=== PATIENT | male | born 1960 | race Caucasian/White ===

== ENCOUNTER 2019-06-23 06:56 | Day surgery (SDC) | payer BC ==
[~2019-06-23] VITALS: Ht 170.2 cm; Wt 71.4 kg
[~2019-06-23 06:56] MED LIST: BUPIVACAINE/PF-EPI 0.5% 1:200K ONE; LIDOCAINE 1%-EPI 1:100K, 20ML ONE
[2019-06-23] MEDS ORDERED: MIDAZOLAM 1 MG/ML, 2ML ONE (07:02)
[2019-06-23] MEDS ORDERED: FENTANYL PF 250 MCG/5ML ONE (07:02)
[2019-06-23] MEDS ORDERED: LACTATED RINGERS 1,000 ML IV SCH (07:19)
[2019-06-23] MEDS ORDERED: GABA300C10 PO (07:21)
[2019-06-23] MEDS ORDERED: CELE200C PO (07:21)
[2019-06-23] MEDS ORDERED: CHLORHEXIDINE 15 ML UDC ONE (07:25)
[2019-06-23] MEDS ORDERED: CHLORHEXIDINE 15 ML UDC MM ONE (07:30)
[2019-06-23 07:46] VITALS: BP 147/90
[2019-06-23] MEDS ORDERED: PROPOFOL 10 MG/ML, 20ML ONE (07:57)
[2019-06-23] MEDS ORDERED: DEXAMETHASONE 4 MG/ML, 1ML ONE (07:57)
[2019-06-23] MEDS ORDERED: SUCCINYLCHOLINE 20 MG/ML, 10ML ONE (07:57)
[2019-06-23] MEDS ORDERED: CEFAZOLIN 1,000 MG ONE (07:57)
[2019-06-23] MEDS ORDERED: ROCURONIUM 10 MG/ML,10ML ONE (07:57)
[2019-06-23] MEDS ORDERED: ONDANSETRON 2MG/ML, 2ML ONE (07:57)
[2019-06-23] MEDS ORDERED: FENTANYL PF 100 MCG/2ML IV PRN (08:30)
[2019-06-23] MEDS ORDERED: MEPERIDINE/PF 25MG/0.5ML IVPush PRN (08:30)
[2019-06-23] MEDS ORDERED: ALBUTEROL SULFATE 2.5 MG/3 ML NPPB PRN (08:30)
[2019-06-23] MEDS ORDERED: ONDANSETRON 2MG/ML, 2ML IVPush PRN (08:30)
[2019-06-23] MEDS ORDERED: KETOROLAC 30 MG/1 ML IV PRN (08:30)
[2019-06-23] MEDS ORDERED: HYDROmorphone 1 MG/ML, 1ML INJ IV PRN (08:30)
[2019-06-23] MEDS ORDERED: PROMETHAZINE 25 MG/ML, 1ML IV PRN (08:30)
[2019-06-23] MEDS ORDERED: DIAZEPAM 5 MG/ML, 2ML IV PRN ×2 (08:30)
[2019-06-23] MEDS ORDERED: METOCLOPRAMIDE 5 MG/ML, 2ML IV PRN (08:30)
[2019-06-23] MEDS ORDERED: OXYcodone 5 MG/5 ML ORAL.SOL UDC PO PRN (08:30)
[2019-06-23] MEDS ORDERED: LABETALOL 5MG/ML, 20ML IV PRN (08:30)
[2019-06-23] MEDS ORDERED: hydrALAzine 20 MG/ML, 1ML IV PRN (08:30)
[2019-06-23] MEDS ORDERED: OMNIPAQUE 180 MG/ML, 20ML VIAL ONE (08:52)
== END 2019-06-23 11:05 | disposition home or self-care (01) ==
LOC: EDSEX 06:56 → OUT 06:56
PROVIDERS: ATTEND Orthopaedic Surgery Orthopaedic Surgery of the Spine
DX: S32.018A Other fracture of first lumbar vertebra, initial encounter for closed fracture (principal); M54.5 Low back pain; M85.88 Other specified disorders of bone density and structure, other site; Z79.899 Other long term (current) drug therapy; Z90.49 Acquired absence of other specified parts of digestive tract; W18.39XA Other fall on same level, initial encounter; Y93.89 Activity, other specified; Y92.098 Other place in other non-institutional residence as the place of occurrence of the external cause; Y99.8 Other external cause status
CPT/HCPCS: 22514; 72100; 88307; 88311; C1713; J0330; J0690; J1100; J2250; J2405; J2704; J3010; J3490; J7120; Q9965